=== PATIENT | male | born 1960 | race Caucasian/White ===

== ENCOUNTER 2019-03-06 04:49 | Emergency (ER) | payer OTHER ==
[~2019-03-06 04:49] MED LIST: ASPIRIN EC81 M1 PO; CRESTOR20 MG PO; FENOFIBRATE160 MG PO; FOLIC ACID 40400 MC1 PO; GLUCOPHAGE500 MG PO; METOPROLOL SUCC25 M1 PO; NAPROSYN500 MG PO; OMEPRAZOLE 20 M20 M1 PO; PAXIL30 MG PO
== END 2019-03-06 06:29 ==
LOC: M.ERS 04:49
DX: Z02.89 Encounter for other administrative examinations (principal)